=== PATIENT | female | born 1990 | race Caucasian/White ===

== ENCOUNTER 2018-09-24 12:59 | Day surgery (SDC) | payer OTHER ==
[~2018-09-24] VITALS: Ht 157.5 cm; Wt 56.7 kg
[~2018-09-24 12:59] MED LIST: ACETAMINOPHEN 650 MG SUPP PR ONE; LR 1,000 ML IV ONE
[2018-09-24 13:25] LABS: HEMATOCRIT 44.1 % (36.0-47.0); HEMOGLOBIN 15.3 g/dl (12.0-15.5); MEAN CORPUSCULAR HEMOGLOBIN 32.9 pg (27.0-33.0); MEAN CORPUSCULAR HGB CONC 34.7 g/dl (32.0-36.5); MEAN CORPUSCULAR VOLUME 94.8 fl (80.0-96.0); PLATELET COUNT, AUTOMATED 210 10^3/uL (150-450); RED BLOOD COUNT 4.65 10^6/uL (4.00-5.40); WHITE BLOOD COUNT 7.8 10^3/uL (4.0-10.0)
[2018-09-24 13:50] LABS: BLOOD UREA NITROGEN 9 MG/DL (7-18); CALCIUM LEVEL 8.8 MG/DL (8.5-10.1); CARBON DIOXIDE LEVEL 31 MEQ/L (21-32); CHLORIDE LEVEL 105 MEQ/L (98-107); CREATININE FOR GFR 0.84 MG/DL (0.55-1.30); GLOMERULAR FILTRATION RATE > 60.0 (>60); GLUCOSE, FASTING 87 MG/DL (70-100); POTASSIUM SERUM 4.2 MEQ/L (3.5-5.1); SODIUM LEVEL 140 MEQ/L (136-145)
[2018-09-24 13:53] LABS: HCG, SERUM QUALITATIVE NEGATIVE (NEGATIVE)
[2018-09-24] MEDS ORDERED: ACETAMINOPHEN 650 MG SUPP As Ordered ONE (17:54)
[2018-09-24] MEDS ORDERED: BUPIVACAINE HCL 0.5% 10 ML VIAL As Ordered ONE (17:54)
[2018-09-24] MEDS ORDERED: SUGAMMADEX SODIUM 500 MG/5 ML VIAL (BRIDION) As Ordered ONE (18:39)
[2018-09-24] MEDS ORDERED: LIDOCAINE 2% INJ 100 MG/5 ML SDV (FOR ANES.) As Ordered ONE (18:39)
[2018-09-24] MEDS ORDERED: MIDAZOLAM INJ 2 MG/2 ML VIAL (J2250) As Ordered ONE (18:39)
[2018-09-24] MEDS ORDERED: PROPOFOL 200 MG/20 ML VIAL As Ordered ONE (18:39)
[2018-09-24] MEDS ORDERED: ONDANSETRON 4MG/2ML VIAL (J2405) As Ordered ONE ×2 (18:39→19:35)
[2018-09-24] MEDS ORDERED: KETOROLAC 60 MG/2 ML VIAL (J1885) As Ordered ONE (18:39)
[2018-09-24] MEDS ORDERED: METOCLOPRAMIDE INJ 10MG/2ML VIAL (J2765) As Ordered ONE ×2 (18:39→19:36)
[2018-09-24] MEDS ORDERED: fentaNYL 100 MCG/2 ML INJECTION (J3010) As Ordered ONE ×2 (18:39→18:51)
[2018-09-24] MEDS ORDERED: dexameTHASONE 4 MG/ML 1ML VIAL (J1100) As Ordered ONE (18:39)
[2018-09-24] MEDS ORDERED: ROCURONIUM BROMIDE 50 MG/5 ML VIAL As Ordered ONE (18:39)
[2018-09-24] MEDS ORDERED: DESFLURANE 240 ML INHALANT As Ordered ONE (18:55)
[2018-09-24] MEDS ORDERED: KETOROLAC 30 MG/ML VIAL (J1885) IM PRN (19:30)
[2018-09-24] MEDS ORDERED: PERCOCET 5MG/325MG TAB As Ordered ONE (19:36)
[2018-09-24] MEDS ORDERED: MEPERIDINE INJ 25 MG/ML VIAL (J2175) IV PRN (20:00)
[2018-09-24] MEDS ORDERED: METOCLOPRAMIDE INJ 10MG/2ML VIAL (J2765) IV PRN (20:00)
[2018-09-24] MEDS ORDERED: ONDANSETRON 4MG/2ML VIAL (J2405) IV PRN (20:00)
[2018-09-24] MEDS ORDERED: LR 1,000 ML IV SCH (20:00)
[2018-09-24] MEDS ORDERED: PERCOCET 5MG/325MG TAB PO PRN (20:00)
[2018-09-24] MEDS ORDERED: fentaNYL 100 MCG/2 ML INJECTION (J3010) IV PRN (20:00)
[2018-09-24 20:50] VITALS: BP 116/76
--- NOTE | 2018-09-26 15:20 | RO ---
DATE OF PROCEDURE: 09/24/2018 PREOPERATIVE DIAGNOSIS: POSTOPERATIVE DIAGNOSIS: OPERATION PROPOSED: Diagnostic laparoscopy. OPERATION PERFORMED: Diagnostic laparoscopy. SURGEON: Darren Shrestha MD [employer] ASSOCIATE: Kojo Marquez DO for extraction, retraction and visualization. ANESTHESIA: General plus local anesthetic for intraperitoneal procedures. ESTIMATED BLOOD LOSS: Less than 20 mL DESCRIPTION OF PROCEDURE: After adequate time-out, Voltaren suppository 1300 mg per rectum, sequentials in placed, no antibiotics required. Reprepping and draping, weighted speculum in vagina, Beach catheter in the bladder draining clear urine. Single-tooth tenaculum was placed on the anterior lip of the cervix. Uterus sounded to a depth of 6 cm, uterine elevator placed endocervical canal. Reprepping and draping, small subumbilical incision was made. Direct visualization with a 5 mm scope and inflation with 3.8 liters of CO2. No evidence of perforation, hemorrhage or bleeding. Panoramic review: Right upper quadrant was normal. Gallbladder area was normal. Appendiceal area was normal. Uterosacral right and left were normal. Tubes and ovaries on both sides appeared to be normal. Arch of the uterosacrals were normal. On the right side, there were three spots of endometriosis that we saw, which possibly could be causing her pain. However, it seems to be remote based on the fact that she just has those three spots and nowhere else. Ovaries appeared to be normal. Anterior aspect of the bladder was clear. The lady's options at the present time are to do nothing, she could possibly do a trial of Depo Lupron, failing that with the dyspareunia, although no guarantee, she has significant cervical uterine prolapse that she could do well with a laparoscopically assisted vaginal hysterectomy (LAVH) and bilateral salpingectomy if her family is completed, otherwise no medication is indicated. The instrument and pad count correct. Two ports removed under direct vision. The gas was removed. Subcuticular stitches were placed. Marcaine 0.25% 6 mL to the incisional sites, skin tapes. Going below, we removed the Beach catheter and the weighted speculum and the tenaculum and sound, and the patient was sent to recovery in good condition.
== END 2018-09-24 20:57 | disposition home or self-care (01) ==
LOC: M SDC 12:59
PROVIDERS: ATTEND Obstetrics & Gynecology
DX: N94.10 Unspecified dyspareunia (principal); N80.9 Endometriosis, unspecified
CPT/HCPCS: 36415; 49320; 80048; 84703; 85027; J1100; J1885; J2250; J2405; J2765; J3010